=== PATIENT | female | born 1975 | race Caucasian/White ===

== ENCOUNTER → 2021-01-12 12:16 | Outpatient (CLI) | payer OTHER, SELFPAY ==
[2021-01-12 20:02] LABS: Add Manual Diff / Slide Review NO; Basophils Absolute Auto 0 /uL (0-100); Basophils Percent Auto 0.5 % (0-2); Eosinophils Absolute Auto 100 /uL (0-450); Eosinophils Percent Auto 2.4 % (2-4); Hematocrit 28.7 % (36-46); Hemoglobin 8.2 g/dL (12.0-16.0); Lymphocytes Absolute Auto 800 /uL (1100-4500); Lymphocytes Percent Auto 25.8 % (25-40); Mean Corpuscular HGB Conc 28.6 % (30-36); Mean Corpuscular Hemoglobin 20.5 PG (26-34); Mean Corpuscular Volume 71.7 fL (80-100); Monocytes Absolute Auto 300 /uL (0-900); Monocytes Percent Auto 10.6 % (3-14); Neutrophils Absolute Auto 1800 /uL (1500-7000); Neutrophils Percent Auto 60.7 % (50-75); Platelet Count 244 X10^3/uL (150-400); Red Cell Distribution Width 20.6 % (11.6-14.8)
[2021-01-12 20:12] LABS: Alanine Aminotransferase 31 IU/L (<35); Albumin 4.3 g/dL (3.5-5.0); Albumin Globulin Ratio 1.7 (1.0-2.8); Alkaline Phosphatase 63 U/L (38-126); Aspartate Aminotransferase 58 IU/L (14-36); Bilirubin Total 0.4 mg/dL (0.2-1.3); Blood Urea Nitrogen 9 mg/dL (7-17); Calcium 9.4 mg/dL (8.4-10.2); Carbon Dioxide 27 mmol/L (22-32); Chloride 101 mmol/L (98-107); Estimated Glomerular Filt Rate > 60.0 mL/min (>60); Globulin 2.5 g/dL (1.7-4.1); Glucose 93 mg/dL (70-100); HEMOLYSIS < 15 (0-50); Potassium 3.9 mmol/L (3.4-5.1); Sodium 136 mmol/L (137-145); Total Protein 6.8 g/dL (6.3-8.2)
[2021-01-12 20:28] LABS: Vitamin D 25 Hydroxy (D3) 33.9 ng/mL (30.0-100.0)
[2021-01-12 20:41] LABS: TSH w/ Reflex to FT4 1.57 uIU/mL (0.47-4.68)
[2021-01-12 20:59] LABS: Vitamin B12 201 pg/mL (239-931)
[2021-01-12 22:26] LABS: Hypochromasia 2+; Microcytosis 2+; Polychromasia 1+
== END ==
PROVIDERS: PCP Physician Assistant Medical; Visit Provider Physician Assistant Medical
DX: K62.5 Hemorrhage of anus and rectum (principal); M25.50 Pain in unspecified joint; R10.9 Unspecified abdominal pain; R53.81 Other malaise; R53.83 Other fatigue; R55 Syncope and collapse
CPT/HCPCS: 80053; 82306; 82607; 84443; 85025; 87086

== ENCOUNTER → 2021-01-13 11:57 | Outpatient (CLI) | payer OTHER, MEDICAID, SELFPAY | PROVIDERS: PCP Physician Assistant Medical; Visit Provider Physician Assistant Medical | DX: K62.5 Hemorrhage of anus and rectum (principal); M25.50 Pain in unspecified joint; R53.81 Other malaise; R53.83 Other fatigue; R55 Syncope and collapse; R10.9 Unspecified abdominal pain | CPT/HCPCS: 87045; 87046; 87177; 87899 ==

== ENCOUNTER → 2021-01-16 14:05 | Outpatient (CLI) | payer OTHER, MEDICAID, SELFPAY ==
[2021-01-16 19:07] LABS: Add Manual Diff / Slide Review NO; Basophils Absolute Auto 0 /uL (0-100); Basophils Percent Auto 0.6 % (0-2); Eosinophils Absolute Auto 0 /uL (0-450); Eosinophils Percent Auto 1.1 % (2-4); Hematocrit 27.9 % (36-46); Lymphocytes Absolute Auto 1000 /uL (1100-4500); Lymphocytes Percent Auto 29.9 % (25-40); Mean Corpuscular HGB Conc 28.6 % (30-36); Mean Corpuscular Hemoglobin 20.5 PG (26-34); Mean Corpuscular Volume 71.9 fL (80-100); Monocytes Absolute Auto 200 /uL (0-900); Monocytes Percent Auto 7.1 % (3-14); Neutrophils Absolute Auto 2100 /uL (1500-7000); Neutrophils Percent Auto 61.3 % (50-75); Platelet Count 277 X10^3/uL (150-400); Red Blood Cell Count 3.89 X10^6/uL (4.0-5.2); Red Cell Distribution Width 20.3 % (11.6-14.8); White Blood Cell Count 3.5 X10^3/uL (4.5-11.0)
[2021-01-16 19:14] LABS: Alanine Aminotransferase 35 IU/L (<35); Albumin 4.8 g/dL (3.5-5.0); Albumin Globulin Ratio 1.7 (1.0-2.8); Alkaline Phosphatase 71 U/L (38-126); Aspartate Aminotransferase 68 IU/L (14-36); BUN Creatinine Ratio 9.2 (6-22); Bilirubin Total 0.3 mg/dL (0.2-1.3); Blood Urea Nitrogen 6 mg/dL (7-17); C-Reactive Protein Quant < 0.5 mg/dL (<1.0); Calcium 9.9 mg/dL (8.4-10.2); Carbon Dioxide 24 mmol/L (22-32); Chloride 101 mmol/L (98-107); Estimated Glomerular Filt Rate > 60.0 mL/min (>60); Gamma Glutamyl Transpeptidase 38 U/L (12-43); Globulin 2.8 g/dL (1.7-4.1); Glucose 97 mg/dL (70-100); HEMOLYSIS < 15 (0-50); Iron 17 ug/dL (37-170); Sodium 136 mmol/L (137-145); Total Protein 7.6 g/dL (6.3-8.2)
[2021-01-16 19:24] LABS: Anisocytosis 3+; Hypochromasia 2+
[2021-01-16 19:25] LABS: Macrocytosis 1+; Microcytosis 2+
[2021-01-16 19:26] LABS: Poikilocytosis 1+
[2021-01-16 19:27] LABS: Erythrocyte Sedimentation Rate 17 MM/HR (0-20)
[2021-01-16 19:28] LABS: Percent Iron Saturation 4 % (15-50); Total Iron Binding Capacity 446 ug/dL (265-497); Transferrin 383 mg/dL (206-381)
== END ==
PROVIDERS: PCP Physician Assistant Medical; Visit Provider Physician Assistant Medical
DX: K62.5 Hemorrhage of anus and rectum (principal); M25.50 Pain in unspecified joint; R10.9 Unspecified abdominal pain; R53.81 Other malaise; R53.83 Other fatigue; R55 Syncope and collapse; D64.9 Anemia, unspecified; F10.10 Alcohol abuse, uncomplicated; R10.84 Generalized abdominal pain
CPT/HCPCS: 80053; 82977; 83540; 83550; 85025; 85651; 86140

== ENCOUNTER → 2021-01-17 13:52 | Outpatient (CLI) | payer OTHER, MEDICAID, SELFPAY ==
[2021-01-19 10:47] LABS: Fecal Immunochemical Test Negative (Negative)
== END ==
PROVIDERS: PCP Physician Assistant Medical; Referring Provider Physician Assistant Medical; Visit Provider Physician Assistant Medical
DX: K62.5 Hemorrhage of anus and rectum (principal); M25.50 Pain in unspecified joint; R10.9 Unspecified abdominal pain; R53.81 Other malaise; R53.83 Other fatigue; R55 Syncope and collapse
CPT/HCPCS: 82274; 87177

== ENCOUNTER → 2021-01-23 11:33 | Outpatient (CLI) | payer OTHER, SELFPAY ==
[2021-01-23 18:54] LABS: Add Manual Diff / Slide Review NO; Basophils Absolute Auto 0 /uL (0-100); Basophils Percent Auto 0.9 % (0-2); Eosinophils Absolute Auto 100 /uL (0-450); Eosinophils Percent Auto 2.6 % (2-4); Hematocrit 26.8 % (36-46); Hemoglobin 7.7 g/dL (12.0-16.0); Lymphocytes Absolute Auto 800 /uL (1100-4500); Lymphocytes Percent Auto 23.8 % (25-40); Mean Corpuscular HGB Conc 28.5 % (30-36); Mean Corpuscular Hemoglobin 20.8 PG (26-34); Mean Corpuscular Volume 72.9 fL (80-100); Monocytes Absolute Auto 200 /uL (0-900); Monocytes Percent Auto 5.2 % (3-14); Neutrophils Absolute Auto 2200 /uL (1500-7000); Neutrophils Percent Auto 67.5 % (50-75); Platelet Count 278 X10^3/uL (150-400); Red Blood Cell Count 3.69 X10^6/uL (4.0-5.2); Red Cell Distribution Width 19.9 % (11.6-14.8); White Blood Cell Count 3.2 X10^3/uL (4.5-11.0)
[2021-01-23 19:04] LABS: Alanine Aminotransferase 34 IU/L (<35); Albumin 4.6 g/dL (3.5-5.0); Albumin Globulin Ratio 1.8 (1.0-2.8); Alkaline Phosphatase 51 U/L (38-126); Aspartate Aminotransferase 55 IU/L (14-36); BUN Creatinine Ratio 15.3 (6-22); Bilirubin Total 0.3 mg/dL (0.2-1.3); Blood Urea Nitrogen 9 mg/dL (7-17); C-Reactive Protein Quant < 0.5 mg/dL (<1.0); Calcium 9.7 mg/dL (8.4-10.2); Carbon Dioxide 26 mmol/L (22-32); Chloride 99 mmol/L (98-107); Estimated Glomerular Filt Rate > 60.0 mL/min (>60); Gamma Glutamyl Transpeptidase 36 U/L (12-43); Globulin 2.5 g/dL (1.7-4.1); Glucose 94 mg/dL (70-100); HEMOLYSIS < 15 (0-50); Lactate Dehydrogenase 349 U/L (313-618); Potassium 3.6 mmol/L (3.4-5.1); Sodium 135 mmol/L (137-145); Total Protein 7.1 g/dL (6.3-8.2)
[2021-01-23 19:37] LABS: Erythrocyte Sedimentation Rate 17 MM/HR (0-20)
[2021-01-23 20:05] LABS: Folate 18.5 ng/mL (2.76-20.0)
[2021-01-25 05:30] LABS: Haptoglobin 105 mg/dL (42-296)
[2021-01-25 09:13] LABS: Ferritin 5 ng/mL (6-137)
== END ==
PROVIDERS: PCP Physician Assistant Medical; Visit Provider Physician Assistant Medical
DX: D64.9 Anemia, unspecified (principal); F10.10 Alcohol abuse, uncomplicated; K62.5 Hemorrhage of anus and rectum; M25.50 Pain in unspecified joint; R53.81 Other malaise; R10.84 Generalized abdominal pain; R53.83 Other fatigue; R79.89 Other specified abnormal findings of blood chemistry
CPT/HCPCS: 80053; 82728; 82746; 82977; 83010; 83615; 85025; 85651; 86140; 86880

== ENCOUNTER 2021-01-26 14:38 | Emergency (ER) | payer OTHER, MEDICAID, SELFPAY ==
[2021-01-26 14:47] VITALS: BP 146/81; PULSE 106; RESP 18; TEMP 36.8; O2SAT 100; BMI 26.6
[2021-01-26 15:41] LABS: Alanine Aminotransferase 34 IU/L (<35); Albumin 4.4 g/dL (3.5-5.0); Albumin Globulin Ratio 1.6 (1.0-2.8); Alkaline Phosphatase 52 U/L (38-126); Aspartate Aminotransferase 42 IU/L (14-36); BUN Creatinine Ratio 13.6 (6-22); Bilirubin Total 0.1 mg/dL (0.2-1.3); Blood Urea Nitrogen 9 mg/dL (7-17); Calcium 9.3 mg/dL (8.4-10.2); Carbon Dioxide 26 mmol/L (22-32); Chloride 104 mmol/L (98-107); Estimated Glomerular Filt Rate > 60.0 mL/min (>60); Globulin 2.7 g/dL (1.7-4.1); Glucose 111 mg/dL (70-100); HEMOLYSIS < 15 (0-50); Potassium 3.7 mmol/L (3.4-5.1); Sodium 138 mmol/L (137-145); Total Protein 7.1 g/dL (6.3-8.2)
[2021-01-26 15:42] LABS: Add Manual Diff / Slide Review NO; Basophils Absolute Auto 0 /uL (0-100); Basophils Percent Auto 1.2 % (0-2); Eosinophils Absolute Auto 100 /uL (0-450); Eosinophils Percent Auto 2.9 % (2-4); Hematocrit 23.4 % (36-46); Lymphocytes Absolute Auto 800 /uL (1100-4500); Lymphocytes Percent Auto 26.9 % (25-40); Mean Corpuscular HGB Conc 29.8 % (30-36); Mean Corpuscular Hemoglobin 21.2 PG (26-34); Mean Corpuscular Volume 71.2 fL (80-100); Monocytes Absolute Auto 300 /uL (0-900); Monocytes Percent Auto 9.8 % (3-14); Neutrophils Absolute Auto 1700 /uL (1500-7000); Neutrophils Percent Auto 59.2 % (50-75); Platelet Count 295 X10^3/uL (150-400); Red Blood Cell Count 3.29 X10^6/uL (4.0-5.2); White Blood Cell Count 2.8 X10^3/uL (4.5-11.0)
--- NOTE | 2021-01-26 16:04 | ED_ITS ---
HPI - Recheck/Abnormal Lab/Rx General Chief Complaint: Recheck/Abnormal Lab/Rx Stated Complaint: Abnormal Blood Work, Extreme Anemia Time Seen by Provider: 01/26/21 15:00 Mode of arrival: Ambulatory Limitations: no limitations History of Present Illness HPI narrative: Patient here for evaluation for anemia. Patient has been closely followed by her primary care and [facility], has low hemoglobin that is trending down words. However 1st hemoglobin done on our medical records was January 12 that was 8.0. For the hemoglobin. Today is 7.0. However, patient just finished her menstrual cycle. Patient states she started feeling tired and fatigued with generalized abdominal bloating at the beginning of the year and becoming worse with symptoms and saw family doctor in the last week. Has referral to Hematology at [facility] and [place]. They just called her on her cell phone while she was here. Hematology office inform stay have not received the referral request from her primary care yet. Patient denies any b lack stools. Patient was living in [facility] as well as [facility] in the past years and just returned back to [facility] June 2020. Since coming back she has felt worse. She did not feel this way while living with overseas. She was evaluated for parasites and negative. Heart rate noted. Will re-evaluate. No dizziness. No syncope. Occasional palpitations. No dyspnea. No chest pain. No black stools Related Data Previous Rx's Medication Instructions Recorded azithromycin 500 mg tablet See Rx Instructions PO .COMPLEX #3 01/16/21 tab ferrous sulfate 325 mg (65 mg 325 mg PO DAILY #7 tab 01/26/21 iron) tablet (iron) Allergies Allergy/AdvReac Type Severity Reaction Status Date / Time No Known Drug Allergies Allergy Verified 01/12/21 11:55 Review of Systems Review of Systems Narrative: GENERAL: Denies chills, positive for fatigue, malaise, negative sweats. HEENT: Denies sinus pain, ear pain, sore throat RESPIRATORY: Denies dyspnea, cough CARDIOVASCULAR: Denies chest pain, palpitations GASTROINTESTINAL: Denies nausea, vomiting, abdominal pain : Denies dysuria, frequency, hematuria MUSCULOSKELETAL: denies muscle or bony pain SKIN: Denies rash, skin lesions NEUROLOGIC: Denies weakness, numbness ROS Unobtainable: All systems reviewed & are unremarkable except as noted in HPI and below Patient History Medical History Acute pharyngitis Dermatophytosis, groin Generalized abdominal pain (genitourinary) device, implant, or graft infection or inflammation H/O candidal vulvovaginitis IUD surveillance Scabies Unspecified otitis media Viral infection, unspecified Social History Smoking Status: Current some day smoker Smoking Status: Current some day smoker alcohol intake frequency: 3 or more drinks per day Alcohol type: wine Substance Use Type: does not use Exam Narrative Exam Narrative: GENERAL: in no distress, not toxic not dyspneic HEAD: Normocephalic. EYES: Pupils equal round No scleral icterus. Bilateral pale conjunctiva ENT: Mucous membranes moist. NECK: Trachea midline. CARDIOVASCULAR: Regular rate and rhythm without murmurs, tachycardic RESPIRATORY: Clear to auscultation. Breath sounds equal bilaterally. No wheezes, rales, or rhonchi. GASTROINTESTINAL: Abdomen soft, non-tender no peritoneal signs, bowel sounds present EXTREMITIES: No gross deformities. BACK: No flank tenderness. NEURO: AOx4. SKIN: Warm and dry PSYCH: Not anxious, is cooperative Initial Vital Signs Initial Vital Signs: Vital Signs Temperature 98.2 F 01/26/21 14:47 Pulse Rate 106 H 01/26/21 14:47 Respiratory Rate 18 01/26/21 14:47 Blood Pressure 146/81 H 01/26/21 14:47 Pulse Oximetry 100 01/26/21 14:47 Course Course Course Narrative: No new issues during course of stay. Orders Ordered: ED Orders 01/26/21 15:15 CMP [Comprehensive Metabolic Panel] Stat Complete Blood Count AUTO DIFF Stat Reevaluation(s) Reevaluation #1: Spoke with patient results. Agrees no transfusion. She will try to call schedule Regional hematology referral given to her by me. As of right now [facility] has not established appointment for her. Heart rate 85 Time: 17:39 Consultations Consultation #1: Spoke with Hematology/Oncology Dr. Webb, agrees, no transfusion. Patient can follow-up in the office. May want to start iron tab daily for 7 days. She can follow up with Dr. Stanley or Dr. dhaliwal at local office. Time: 17:01 Vital Signs Vital signs: Vital Signs - 8 hr 01/26/21 14:47 01/26/21 16:45 01/26/21 18:05 Temperature 98.2 F Pulse Rate 106 H 77 79 Respiratory Rate 18 16 18 Blood Pressure 146/81 H 118/74 Pulse Oximetry 100 99 99 MDM - Recheck/Abnormal Lab/Rx Lab Data Result diagrams: 01/26/21 15:15 01/26/21 15:15 Labs: Lab Results 01/26/21 01/26/21 Range/Units 15:15 15:15 WBC 2.8 L (4.5-11.0) X10^3/uL RBC 3.29 L (4.0-5.2) X10^6/uL Hgb 7.0 L (12.0-16.0) g/dL Hct 23.4 L (36-46) % MCV 71.2 L (80-100) fL MCH 21.2 L (26-34) PG MCHC 29.8 L (30-36) % RDW 20.0 H (11.6-14.8) % Plt Count 295 (150-400) X10^3/uL Neut % (Auto) 59.2 (50-75) % Lymph % (Auto) 26.9 (25-40) % Beaver % (Auto) 9.8 (3-14) % Eos % (Auto) 2.9 (2-4) % Baso % (Auto) 1.2 (0-2) % Neut # (Auto) 1700 (6576-8938) /uL Lymph # (Auto) 800 L (7354-9057) /uL Beaver # (Auto) 300 (0-900) /uL Eos # (Auto) 100 (0-450) /uL Baso # (Auto) 0 (0-100) /uL Sodium 138 (137-145) mmol/L Potassium 3.7 (3.4-5.1) mmol/L Chloride 104 (98-107) mmol/L Carbon Dioxide 26 (22-32) mmol/L BUN 9 (7-17) mg/dL Creatinine 0.66 (0.52-1.04) mg/dL Estimated GFR > 60.0 (>60) mL/min BUN/Creatinine Ratio 13.6 (6-22) Glucose 111 H (70-100) mg/dL Calcium 9.3 (8.4-10.2) mg/dL Total Bilirubin 0.1 L (0.2-1.3) mg/dL AST 42 H (14-36) IU/L ALT 34 (<35) IU/L Alkaline Phosphatase 52 (38-126) U/L Total Protein 7.1 (6.3-8.2) g/dL Albumin 4.4 (3.5-5.0) g/dL Globulin 2.7 (1.7-4.1) g/dL Albumin/Globulin Ratio 1.6 (1.0-2.8) MDM Narrative Medical decision making narrative: Appropriate for discharge home. Patient not toxic. Patient essentially at baseline with hemoglobin. Is microcytic anemia. Reviewed with cash applications analyst. No active bleeding. Does get palpitations at times with positional changes but no syncope no diaphoresis no dyspnea. Patient agrees with treatment plan and follow-up with Hematology. She will call hematology group that I spoke with. Return precautions reviewed with her. Discharge Plan Departure Patient Disposition: Home Clinical Impression: Anemia Qualifiers: Anemia type: unspecified type Qualified Code(s): D64.9 - Anemia, unspecified Instructions: Anemia Activity Restrictions/Additional Instructions: Return if worse if any questions or concerns or trouble breathing or any worsening symptoms or any worsening of dizziness or feeling likely going to pass out. Call provided hematology office in the morning to see if you can get into the office sooner Prescriptions: New ferrous sulfate [iron] 325 mg (65 mg iron) tablet 325 mg PO DAILY Qty: 7 RF: 0 No Action azithromycin 500 mg tablet See Rx Instructions PO .COMPLEX Qty: 3 RF: 0 Referrals: Tuan Dhaliwal MD [Physician] - Hannah Tai PA-C [Primary Care Provider] - Clarissa Stanley MD [Physician] -
[2021-01-26 16:45] VITALS: PULSE 77; RESP 16; O2SAT 99
[2021-01-26 18:05] VITALS: BP 118/74; PULSE 79; RESP 18; O2SAT 99
== END 2021-01-26 18:16 | disposition home or self-care (01) ==
PROVIDERS: Emergency Provider Emergency Medicine; PCP Physician Assistant Medical
DX: D64.9 Anemia, unspecified (principal)
CPT/HCPCS: 36415; 80053; 85025; 99283

== ENCOUNTER → 2021-04-20 12:03 | Outpatient (CLI) | payer OTHER, MEDICAID, SELFPAY ==
[2021-04-20 13:17] LABS: COVID19 -Nasal RAPID Negative (Negative)
== END ==
PROVIDERS: Family Provider Internal Medicine Hematology & Oncology; PCP Physician Assistant Medical; Referring Provider Specialist; Visit Provider Specialist
DX: Z01.812 Encounter for preprocedural laboratory examination (principal); Z20.822 Contact with and (suspected) exposure to COVID-19
CPT/HCPCS: 87635

== ENCOUNTER 2021-04-21 06:49 | Day surgery (SDC) | payer OTHER, MEDICAID, SELFPAY ==
[2021-04-18 14:44] VITALS: BMI 27.3
[2021-04-21] VITALS (15 sets, daily range): BP systolic 93–131; BP diastolic 54–90; PULSE 65–96; RESP 12–20; TEMP 36.2–36.8; O2SAT 91–98; BMI 27.3
--- NOTE | 2021-04-21 | PATH_ITS ---
[facility] Accession Number: [id number] . 01 Material submitted: . PART A: uterus - UTERUS AND BILATERAL FALLOPIAN TUBES PART B: peritoneum - PERITONEAL BIOPSY . 02 Diagnosis: A. Uterus and Bilateral Fallopian Tubes, Hysterectomy and Bilateral Salpingectomies (Morcellated Uterus Weight 273 grams): Endometrium with features of breakdown and shedding; negative for glandular hyperplasia, cytologic atypia, or malignancy. Multiple portions of leiomyomata (up to 16 mm in greatest dimension); negative for atypia or malignancy. Uterine serosa with no significant histomorphologic abnormality. Fallopian tubes x2, complete cross sections; negative for atypia or malignancy. . B. Peritoneal Biopsy: Fibroconnective tissue involved by endometriosis. [facility] 04/27/2021 1421 Local . 02 Electronically signed: . Vani Giudo MD, Pathologist NPI- [id number] . 01 Gross description: . A. Received in formalin, labeled with the patient's name and additionally labeled uterus and bilateral fallopian tubes is a morcellated uterus specimen weighing 273 grams and aggregating 18.0 x 17.0 x 3.5 cm. Cut surfaces are rubbery with a whorled pale holcomb surface. A few putative areas of endometrial mucosa are seen; and no irregular thickening is noted. A detached probable leiomyoma measuring 1.0 x 1.0 x 0.8 cm is also present. Other scattered mural leiomyomata up to 1.6 cm in greatest dimension are seen. No cervix is identified. Also received is an attached fallopian tube measuring 5.0 cm in length and up to 0.8 cm in diameter. There is a detached fallopian tube present measuring 6.0 cm in length and up to 0.7 cm in diameter. The fallopian tube serosa is holcomb-parra smooth and glistening. The fallopian tubes are sectioned revealed a pinpoint stellate lumen. No masses or lesions are identified. Material Checker sections are submitted as follows: . Cassette A1: Material Checker leiomyomata. Cassettes A2-A4: Presumed endomyometrium. Cassette A5: Attached fallopian tube. Cassette A6: Detached fallopian tube. . B. Received in formalin, labeled with the patient's name and additionally labeled peritoneal biopsy is an irregular portion of holcomb-parra soft tissue with punctate hemorrhage measuring 1.2 x 0.3 x 0.2 cm. The specimen is entirely submitted in cassette B1. ([id number]) /MRV 04/26/2021 1227 Local . 02 Pathologist provided ICD-10: N92.1, D25.0, D50.9, N80.9 . 02 CPT . 824060, 472124 Performed at: 01 [facility] Cyt[facility] [address] [id number] MD Souleymane Coyle MD Phone: [phone] Performed at: 02 [facility] [id number] [place] [id number] MD Hannah Pardo MD Phone: [phone]
--- NOTE | 2021-04-21 07:24 | PM.PREOP ---
Pre-operative Note COVID-19 COVID-19 status: Negative Result date/Date tested (Pos, Neg/Pending): 04/20/21 Interval Note History & Physical reviewed/Exam performed by Physician: Yes Changes to H&P: No
[2021-04-21] MEDS: LACTATED RINGERS 1,000 ML 100 ML IV ×3 (07:36→22:07)
[2021-04-21 07:43] LABS: Add Manual Diff / Slide Review NO; Basophils Absolute Auto 0 /uL (0-100); Basophils Percent Auto 0.8 % (0-2); Eosinophils Absolute Auto 200 /uL (0-450); Eosinophils Percent Auto 5.2 % (2-4); Hematocrit 29.2 % (36-46); Hemoglobin 9.6 g/dL (12.0-16.0); Lymphocytes Absolute Auto 1300 /uL (1100-4500); Lymphocytes Percent Auto 44.5 % (25-40); Mean Corpuscular HGB Conc 32.9 % (30-36); Mean Corpuscular Hemoglobin 28.4 PG (26-34); Mean Corpuscular Volume 86.4 fL (80-100); Monocytes Absolute Auto 300 /uL (0-900); Monocytes Percent Auto 8.7 % (3-14); Neutrophils Absolute Auto 1200 /uL (1500-7000); Neutrophils Percent Auto 40.8 % (50-75); Platelet Count 213 X10^3/uL (150-400); Red Blood Cell Count 3.38 X10^6/uL (4.0-5.2); Red Cell Distribution Width 21.4 % (11.6-14.8)
[2021-04-21] MEDS: CEFAZOLIN 2 GM/20 ML SYRINGE IV (07:57)
[2021-04-21] MEDS: ACETAMINOPHEN IV 1,000 MG/100 ML VIAL 400 MG IV (08:00)
[2021-04-21 08:14] LABS: Anisocytosis 2+
--- NOTE | 2021-04-21 08:23 | SUR.OPER ---
Lithotomy on padded OR bed. [place] Pad Positioner under torso. Head on pillow, arms padded and tucked at sides. Legs secured in padded yellow fins stirrups.
[2021-04-21] MEDS: ROPIVACAINE 0.2% PF 2 MG/ML 10ML AMP 20 ML INJ (08:31)
[2021-04-21] MEDS: BUPIVACAINE 0.5% (PF) 30 ML, EPINEPHrine 0.15 MG INJ (08:31)
--- NOTE | 2021-04-21 09:35 | PM.OP.1 ---
Operative Date/Time/Diagnoses Date of procedure: 04/21/21 Time of procedure: 09:35 Pre-op diagnosis: Menorrhagia, submucous fibroid Post-op diagnosis: same (Peritoneal endometriosis) Procedure & Clinicians Procedure: Laparoscopic supracervical hysterectomy with bilateral salpingectomies and biopsy of peritoneal tissue likely endometriosis Same procedure as scheduled: Yes Indications: Menorrhagia with submucous fibroid on ultrasound Surgeon: Martha Lewis Rail Transportation Operator: Lara Burden Anesthesia Type: General Operative Notes Findings: Enlarged fibroid uterus with normal appearing ovaries and tubes. Normal liver edge and gallbladder dome. Normal bowel surface. 1 area of endometriosis in the posterior right broad ligament. Closure Type: primary Specimen(s): other (Uterus above the level of the cervix, bilateral fallopian tubes, peritoneal biopsy) Applied: catheter (Alberto) Estimated Blood Loss (mL): 20 Blood products transfused: none Procedure in detail: Patient is brought to the operating room where she underwent general anesthesia and placed in low [facility] stirrups. She was prepped and draped in the usual sterile fashion. A check list was reviewed with the staff in the room prior to beginning of the case. Patient had pulsatile stockings in place and functional. 2 g of Ancef were in prior to beginning of the case.. A Alberto catheter was placed. A single-tooth tenaculum was placed on the anterior lip of the cervix and the cervix dilated to a #6 Hegar dilator. The uterine manipulator was placed through the cervix into the uterus with the balloon inflated with 3 mL of air. The area of the umbilical incision and the 5 mm right and left lower quadrant incisions were injected with Marcaine. An incision was made with scalpel. The verries needle was placed into the abdomen and confirmed in the appropriate place with withdrawal on a syringe and then free flow of fluid down through the needle. The abdomen was insufflated with CO2. The needle was removed and a 5 mm trocar placed without difficulty. There did not appear to be any damage is placement of the trocar. The right and left lower quadrant incisions were made with the scalpel and the trochars placed without damage to internal structures. The PK forceps were used to cauterize the mesosalpinx followed by the round ligaments on both sides. Sequential bites were taken down the broad ligaments. The uterine arteries were cauterized. An incision was made above the level bladder pushing the bladder away from the cervix. The MOISE loop was placed around the uterus and the uterus was amputated above the level of the bladder. Bleeding was controlled with the PK forceps. The PK forceps were used to cauterize in the endocervical canal. A supracervical incision was made and an 11 mm port placed. A 15 mm Endo Catch bag was placed in the abdomen. The uterus and tubes were placed in the bag and brought up through the suprapubic port site. The Jay O was placed. The uterus was hand morselized. The abdomen was reinsufflated and adequate hemostasis was noted. The trochars were removed and the CO2 allowed escape from the abdomen. The fascia layer of the suprapubic site was repaired with 0 Vicryl suture. Skin was closed with 4-0 Monocryl suture at the suprapubic site and the other 3 sites. The patient went to recovery room in good condition. Counts of instruments and sponges were correct. Dr. Burden was present throughout the case to assist with holding the camera, retracting, cauterizing and cutting the structures on the left side of the patient, as well as assisting with morselization of the uterus. Complications: none Post-operative Condition: stable Disposition: Acute Care (Observation) Plan for aftercare: Home in a.m. if stable, tolerating a regular diet, ambulatory
[2021-04-21] MEDS: ONDANSETRON 4 MG/2 ML INJ IV ×2 (10:30→15:36)
--- NOTE | 2021-04-21 10:34 | SUR.PHASEI ---
Report to PAOLA Ruiz. Pt transported to room 214 with PAOLA Kirk and myself. No new updates for RN. Pt was in stable condition upon transfer
[2021-04-21] MEDS: KETOROLAC 30 MG/ML VIAL IV ×3 (10:43→23:04)
[2021-04-21] MEDS: ACETAMINOPHEN 325 MG TABLET 650 MG PO (12:23)
[2021-04-21] MEDS: OXYCODONE IR 5 MG TABLET PO ×3 (12:28→20:14)
--- NOTE | 2021-04-21 20:15 | PC.NURSE ---
Pt received from PACU at 1030 this a.m. A&OX3. She reports pain controlled well with IV toradol and oxycodone 5 mg. She reports some cramping and nausea however believes zofran causes a wave of emotions intermittently tearful for a short while without being able to explain why she felt emotional. Encouraged patient and offered support. She denies much appetite but able to keep some snacks down, and drinking plenty of fluid this afternoon. Small amount of bleeding to one of incisions, reinforced dressing and no further bleeding. Continuous monitoring. Alberto in place, she has not yet gotten out of bed. SCD's in place. Encouraged IS use. Plan for d/c home in a.m.
[2021-04-22] MEDS: OXYCODONE IR 5 MG TABLET PO ×2 (00:33→04:46)
[2021-04-22] MEDS: ACETAMINOPHEN 325 MG TABLET 650 MG PO ×2 (00:34→06:01)
[2021-04-22 03:37] VITALS: BP 107/77; PULSE 71; RESP 17; TEMP 36.1; O2SAT 99
[2021-04-22] MEDS: KETOROLAC 30 MG/ML VIAL IV (04:40)
--- NOTE | 2021-04-22 06:20 | PC.NURSE ---
0615 Alberto catheter discontinued after medicated with 650 mg. of Tylenol too early for Oxycodone. Very scant blood noted when gene care was done. Instructed to call for assistance if she needed to use the bathroom. Will cont. POC & monitor.
[2021-04-22 06:58] LABS: Basophils Absolute Auto 0 /uL (0-100); Basophils Percent Auto 0.5 % (0-2); Eosinophils Absolute Auto 0 /uL (0-450); Eosinophils Percent Auto 0.1 % (2-4); Hematocrit 24.3 % (36-46); Hemoglobin 7.9 g/dL (12.0-16.0); Lymphocytes Absolute Auto 1000 /uL (1100-4500); Lymphocytes Percent Auto 23.2 % (25-40); Mean Corpuscular HGB Conc 32.4 % (30-36); Mean Corpuscular Hemoglobin 27.8 PG (26-34); Mean Corpuscular Volume 85.8 fL (80-100); Monocytes Absolute Auto 300 /uL (0-900); Neutrophils Absolute Auto 2900 /uL (1500-7000); Neutrophils Percent Auto 69.2 % (50-75); Platelet Count 168 X10^3/uL (150-400); Red Blood Cell Count 2.83 X10^6/uL (4.0-5.2); Red Cell Distribution Width 21.3 % (11.6-14.8); White Blood Cell Count 4.2 X10^3/uL (4.5-11.0)
[2021-04-22 07:04] LABS: Add Manual Diff / Slide Review SLIDE REVIEW
[2021-04-22 07:45] LABS: Anisocytosis 1+
--- NOTE | 2021-04-22 08:06 | P.DS_ITS ---
History of Present Illness History of Present Illness Date Patient Seen: 04/22/21 Time Patient Seen: 08:06 Chief complaint: OPB Narrative: Postoperative laparoscopic supracervical hysterectomy with bilateral salpingectomy and biopsy of peritoneal endometriosis stable. She has spikes of pain but otherwise okay pain control. She denies nausea. She is ready to try to ambulate and urinate post Alberto catheter removed. Discharge Providers Provider Discharge Date: 04/22/21 Primary care physician: Hannah Tai PA-C Discharge provider: Martha Lewis MD Summary Status at Discharge Cognitive/behavioral status at discharge: oriented Functional status at discharge: independent ambulation Overall status at discharge: patient is progressing back to baseline Time Spent with Patient Time spent: Less than 30 minutes Exam Vital Signs (past 8 hours): - 04/22/21 03:37 Temperature 96.9 F L Pulse Rate 71 Respiratory Rate 17 Blood Pressure 107/77 Pulse Oximetry 99 Oxygen Delivery Method Room Air Oxygen Flow Rate 0 Narrative Exam Narrative: Abdomen is soft, minimally distended, minimally tender. Incisions are clean, dry, intact. Minimal vaginal bleeding. Extremities without edema and nontender. Objective Labs Result Diagrams: 04/22/21 06:45 Labs: Laboratory Results - last 24 hr 04/21/21 04/21/21 04/22/21 07:30 07:30 06:45 WBC 4.2 L RBC 2.83 L Hgb 7.9 L Hct 24.3 L MCV 85.8 MCH 27.8 MCHC 32.4 RDW 21.3 H Plt Count 168 Neut % (Auto) 69.2 D Lymph % (Auto) 23.2 L D Morris % (Auto) 7.0 Eos % (Auto) 0.1 L Baso % (Auto) 0.5 Neut # (Auto) 2900 Lymph # (Auto) 1000 L Morris # (Auto) 300 Eos # (Auto) 0 Baso # (Auto) 0 RBC Morphology Not Reportable See below Anisocytosis 2+ H 1+ H Antibody Screen Negative [facility] Medical History (Updated 04/18/21 @ 14:58 by Karuna Fox RN) Acute pharyngitis Dermatophytosis, groin Generalized abdominal pain (genitourinary) device, implant, or graft infection or inflammation H/O candidal vulvovaginitis IUD surveillance Joint pain (2011) Scabies Unspecified otitis media Viral infection, unspecified Surgical History (Updated 04/21/21 @ 09:33 by Martha Lewis MD) No history of previous surgery Social History household members: family Smoking Status: Current some day smoker alcohol intake: current Discharge Assessment & Plan Assessment and Plan Assessment: Postoperative laparoscopic supracervical hysterectomy with bilateral salpingectomies and biopsy of perineal endometriosis stable. Plan of Treatment: After patient able to urinate and ambulate she will be discharged home. Patient will schedule postop appointment in about 2 weeks. Prescription for oxycodone sent to [facility] pharmacy. Routine precautions reviewed. Discharge Plan Discharge Plan Patient Disposition: Home Discharge orders & Medications Discharge Orders: Discharge (Order); Ordered 04/22/21 Ordered By: Martha Lewis Prescriptions: New oxycodone 5 mg Tablet 5 mg PO Q4HR PRN (Reason: Pain, Moderate (4-6)) Qty: 20 0RF Continued pyridoxine (vitamin B6) [Vitamin B-6] 100 mg Tablet 50 mg PO DAILY 0RF B-complex with vitamin C Tablet 1 tab DAILY 0RF omega-3 fatty acids-vitamin E 1,000 mg Capsule 1 cap PO DAILY 0RF Probiotic 10 billion cell Capsule 10,000 mmu cells PO DAILY 0RF Follow up/Referrals: Martha Lewis MD [Physician] - (Patient will schedule postop appointment at the same date as she has her next oncology appointment, May 04) Hannah Tai, PAJosephineC [Primary Care Provider] - Diet/Activity/Treatments Diet: Regular Activity: Nothing in vagina for 1 week. No other restrictions. Skin/Wound/Dressing Care Report to your healthcare provider any signs of infection, such as:: chills, fever and unusual redness Dressing: May remove Band-Aids 24 hours after surgery. Leave Steri-Strips in place, can get wet, just pat dry. After 1 week get wet and rub off Visit Report/Discharge Packet Instructions: DI for Hysterectomy, DI for Laparoscopy Discharge Data Primary Care Provider: Hannah Tai Attending Provider: Martha Lewis
[2021-04-22 08:20] VITALS: BP 101/70; PULSE 65; RESP 17; TEMP 36.7; O2SAT 99
[2021-04-22 09:03] VITALS: O2SAT 99
[2021-04-22] MEDS: OXYCODONE IR 10 MG TABLET PO (09:32)
[2021-04-22] MEDS: DOCUSATE 100 MG CAPSULE 200 MG PO (09:32)
[2021-04-22 09:35] VITALS: O2SAT 98
--- NOTE | 2021-04-22 09:35 | PC.NURSE ---
pt up to bathroom to void, min sba now in chair, co low abd surgical pain 09/15 medicated with oxycodone 10 mg ir. anticipate dc home at 1100. will monitor.
--- NOTE | 2021-04-22 12:18 | CM.DANOTE ---
DCP: Case received, EMR reviewed and met with patient. Introduced self and role. Was able to obtain some information from patient regarding her baseline activity level. DCP assessment completed with information currently available. Patient is a 45 year old female who admitted yesterday morning to the care of the [employer]AL [employer]ING HELPER team. PCP: Dr. Tai. Payer: confirmed: [employer] [place]. Patient came to the hospital via private vehicle for a surgical procedure. Patient had a supracervical hysterectomy. Met with patient in her room. She is alert and oriented, pleasant. She resides in [facility]. She is independent, and is employed at [employer]. Patient is hoping to leave by 11:00, [place] ferry. P: Patient is discharging home today with no needs. Valerie Devries RN/Compliance Technician Discharge Planning/Care Management CM Discharge Assessment Start: 04/22/21 12:17 Freq: Status: Active Protocol: Document 04/22/21 12:17 (Rec: 04/22/21 12:18 [id number]) Discharge Planning Assessment Assigned Hotel Services Sales Representative Valerie Devries RN/Compliance Technician Advance Directives? No History Provided By Patient,Medical Record Prior Living Arrangements House Household Members family Type of transporation used prior to Drives own vehicle admit Independent with ADL's Yes Is patient alert and oriented? Yes Caregiver for Another No Barriers to Discharge No Transportation Arrangement Family Referrals Initiated None needed Whiteboard Updated in Patient Room with Yes name and ext. # of Hotel Services Sales Representative Review Status In Process Next Review Type Continued Stay Review Pre-Anesthesia Assessment Start: 04/18/21 14:44 Freq: Status: Complete Protocol: Document 04/18/21 14:44 [facility] (Rec: 04/18/21 14:58 [facility] [id number]) Pre-Anesthesia Assessment Preferred Name Gay Patient Information Reviewed Via Chart Review,Phone Assessment Comment COVID screen @ 04/20/21 Primary Care Provider Hannah Tai Seen Specialist in Last 12 Months Yes Specialist Seen Emergency,Water Control Station Engineer, Oncologist Primary Language Upper Sorbian Layout Designer Required No Height 5 ft 3 in Weight 154 lb Body Mass Index (BMI) 27.3 Barriers to Learning None Hx Anesthesia Reactions Pt has no prior surgical history, wisdom teeth extraction req more sedation Hx Family Anesthesia Reaction Yes: Cousin and sister have woken up during surgery Anesthesia Review Requested No Parcel Post Clerk No alcohol intake current alcohol intake frequency 3 or more drinks per day Smoking Status Current some day smoker Substance Use Type does not use History of Falling (Recent or History of No ) Patient is completely paralyzed or No completely immobile Mental Status Oriented to own ability Is patient on oxygen? No Does patient have JIMENEZ/SOB Yes Hx Sleep Apnea No Currently Taking a Beta Baljeet No Hx Chest Pain Yes: Palpitations Hx SOB Yes Anti-Coagulant Therapy No Has a Neurosurgical Nurse Practitioner No Cardiac Testing No Hx Pacemaker/ICD No Pacemaker Rep Required? No Cardiac Clearance Received Not Applicable Gastrointestinal Symptoms Abdominal Pain,Bloating Genitourinary Symptoms Abdominal Discomfort Urinary Catheter Present No Hx Urinary Self Catheterization No Diabetes No Patient No Lactating No Received a COVID vaccine? No Marital Status Single Comment Lives on [facility] Advance Directives? No
== END 2021-04-22 11:00 | disposition home or self-care (01) ==
LOC: OR 06:53 → AC 06:57
PROVIDERS: Family Provider Internal Medicine Hematology & Oncology; PCP Physician Assistant Medical; Referring Provider Physician Assistant Medical; Visit Provider Specialist
PROC: 0UT94ZL Resection of Uterus, Supracervical, Percutaneous Endoscopic Approach (ICD-10-PCS; CPT 58544; principal; 2021-04-21 07:45)
DX: D25.0 Submucous leiomyoma of uterus (principal); D50.9 Iron deficiency anemia, unspecified; F17.210 Nicotine dependence, cigarettes, uncomplicated; N80.3 Endometriosis of pelvic peritoneum
CPT/HCPCS: 58544; 36415; 85025; 86850; 86900; 86901; 94760; 94762; J0131; J0171; J0690; J1100; J1885; J2250; J2405; J2704; J2795; J3010

== ENCOUNTER 2021-05-31 12:09 | Day surgery (SDC) | payer OTHER, MEDICAID, SELFPAY ==
[2021-05-04 12:03] VITALS: BMI 27.3
[2021-05-31] VITALS (7 sets, daily range): BP systolic 113–133; BP diastolic 75–93; PULSE 66–82; RESP 13–18; TEMP 36.4; O2SAT 18–99; BMI 26.5
--- NOTE | 2021-05-31 | PATH_ITS ---
[facility] Accession Number: [id number] . 01 Material submitted: . PART A: duodenum - DUODENUM PART B: gastrointestinal site - GASTRIC . 01 Diagnosis: A. Duodenum, Biopsy: Duodenal mucosa with no diagnostic abnormality. Negative for active inflammation, features of sprue, dysplasia, or malignancy. . B. Stomach, Biopsies: Gastric antral and body mucosa with mild chronic inflammation. Negative for Helicobacter organisms by immunohistochemistry. Negative for intestinal metaplasia. Negative for dysplasia or malignancy. . [facility] 06/05/2021 1640 Local . 01 Electronically signed: . Barron Smith MD, PhD, Pathologist NPI- [id number] . 01 Gross description: . Part A: DUODENUM: Received in formalin are 2 fragment(s) of holcomb, soft tissue measuring 0.3 x 0.2 x 0.1 cm to 0.1 x 0.1 x 0.1 cm submitted entirely in 1 cassette(s) Part B: GASTRIC: Received in formalin are multiple fragment(s) of holcomb, soft tissue measuring 0.7 x 0.4 x 0.1 cm in aggregate submitted entirely in 1 cassette(s) /CPE 06/01/2021 1340 Local . 01 Microscopic: . B. An immunohistochemical stain was performed to evaluate for Helicobacter organisms and is negative. The control stain showed appropriate reactivity. . * This test was developed and its performance characteristics determined by [employer]. It has not been cleared or approved by the U.S. Food and Drug Administration. The FDA has determined that such clearance or approval is not necessary. This test is used for clinical purposes. It should not be regarded as investigational or for research. . 01 Pathologist provided ICD-10: D50.9, K29.70 . 01 CPT . 536007, 864435, C48495 Specimen Comment: A courtesy copy of this report has been sent to [phone] Performed at: 01 [facility] [address] [place] [address], [place], [place] [id number] MD Souleymane Coyle MD Phone: [phone]
[2021-05-31 12:50] LABS: COVID19 -Nasal RAPID Negative (Negative)
--- NOTE | 2021-05-31 13:02 | PM.HP.1 ---
History of Present Illness History of Present Illness [place] [facility] [place]: Iron deficiency and B12 deficiency with anemia. Need to rule out atrophic gastritis and celiac Patient History Medical History (Updated 05/31/21 @ 08:29 by Cyndee Morales RN) Acute pharyngitis Anemia Dermatophytosis, groin Generalized abdominal pain (genitourinary) device, implant, or graft infection or inflammation H/O candidal vulvovaginitis IUD surveillance Joint pain (2011) Scabies Unspecified otitis media Viral infection, unspecified Surgical History (Updated 05/04/21 @ 16:02 by Clarissa Stanley MD) No history of previous surgery Family & Social History Social History: household members family Tobacco & Substance use: Smoking Status Current some day smoker alcohol intake current alcohol intake frequency 3 or more drinks per day Substance Use Type does not use Meds Home Medications and Allergies Home Medications Medication Instructions Recorded Confirmed Type B-complex with vitamin C 1 tab PO DAILY 02/14/21 05/31/21 History Lactobacillus acidophilus 10 10,000 mmu cells PO DAILY 02/14/21 05/31/21 History billion cell capsule (Probiotic) omega-3 fatty acids-vitamin E 1 cap PO DAILY 02/14/21 05/31/21 History 1,000 mg capsule pyridoxine (vitamin B6) 100 mg 50 mg PO DAILY 02/14/21 05/31/21 History tablet (Vitamin B-6) oxycodone 5 mg tablet 5 mg PO Q6H PRN #20 tab 05/04/21 05/31/21 Rx bupropion HCl 150 mg 24 hr tablet, 300 mg PO QAM #180 tab 05/25/21 05/31/21 Rx extended release cyanocobalamin (vitamin B-12) See Rx Instructions .ROUTE .COMPLEX 05/31/21 05/31/21 History 1,000 mcg/mL injection kit Allergies Allergy/AdvReac Type Severity Reaction Status Date / Time No Known Drug Allergies Allergy Verified 05/31/21 12:50 Exam Vital Signs (past 8 hours): Oropharynx free of lesions Chest clear to auscultation percussion Cardiac exam reveals no S3 or murmur Objective Labs Labs: Laboratory Results - last 24 hr 05/31/21 12:31 SARS-CoV-2 (PCR) Negative Assessment & Plan Assessment & Plan narrative: Anemia with a component of iron deficiency and B12 deficiency. Need for EGD and biopsies to rule out gastric or duodenal pathology. Procedure being done so that disease does not advance. Risks, benefits, alternatives have been explained. Time Spent With Patient Critical Care time: I spent a total of [] minutes of critical care time on this patient's care today; this time is exclusive of procedural time.
--- NOTE | 2021-05-31 13:04 | PM.OP.EGD ---
Operative Date/Time/Diagnoses Date of procedure: 05/31/21 Pre-op diagnosis: See indication and findings Procedure & Clinicians Study performed: EGD with biopsy Indications: B12 and iron deficiency with anemia Procedure Notes Procedure in detail: After informed consent was obtained the patient was placed in left lateral decubitus position. Video upper scope was placed into the oropharynx and with the patient's help swelled the esophagus with the esophagus stomach and duodenum were carefully examined. Retroflexed view the GE junction was performed. The scope was removed. The patient tolerated procedure well. Blood loss none Complications none Sedation mac Findings 1. Completely normal esophagus with regular squamocolumnar junction extending only up to the ends of the gastric folds. 2. Somewhat erythematous stomach but no erosions ulcers in certainly no evidence of atrophy. Biopsies taken in the antrum and body 3. Normal duodenal bulb and sweep biopsies taken to rule out celiac disease. Patient is already due to follow up with Dr. Argueta will be following up on the biopsies
[2021-05-31] MEDS: SODIUM CHLORIDE 0.9% 1,000 ML 84 ML IV (13:11)
== END 2021-05-31 14:59 | disposition home or self-care (01) ==
PROVIDERS: Family Provider Internal Medicine Hematology & Oncology; PCP Physician Assistant Medical; Referring Provider Internal Medicine Gastroenterology; Visit Provider Internal Medicine Gastroenterology
PROC: 0DJ08ZZ Inspection of Upper Intestinal Tract, Via Natural or Artificial Opening Endoscopic (ICD-10-PCS; CPT 43235; principal; 2021-05-31 13:30)
DX: K29.50 Unspecified chronic gastritis without bleeding (principal); D51.3 Other dietary vitamin B12 deficiency anemia; D50.9 Iron deficiency anemia, unspecified; F17.210 Nicotine dependence, cigarettes, uncomplicated; Z20.822 Contact with and (suspected) exposure to COVID-19
CPT/HCPCS: 43239; 87635; J1756; J2704; J3420

== ENCOUNTER 2021-07-17 09:04 | Day surgery (SDC) | payer OTHER, MEDICAID, SELFPAY ==
[2021-05-04 12:03] VITALS: BMI 27.3
--- NOTE | 2021-07-14 16:20 | SUR.PREOP ---
07/14/21-420pm- patient called to discuss preop instructions saturday=no answer. message left on answering machine. requested to call back today reguarding covid testing.
--- NOTE | 2021-07-17 | PATH_ITS ---
[facility] Accession Number: [id number] . 01 Material submitted: . colon - RECTO SIGMOID BIOPSY . 02 Diagnosis: Rectosigmoid Colon, Biopsy: Hyperplastic polyp. Melanosis coli. Negative for active or microscopic colitis. Negative for granulomas, dysplasia or malignancy. [facility] 07/18/2021 1402 Local . 02 Electronically signed: . Barron Smith MD, PhD, Pathologist NPI- [id number] . 01 Gross description: . RECTO SIGMOID BIOPSY: Received in formalin is 1 fragment(s) of holcomb, soft tissue measuring 0.1 x 0.1 x 0.1 cm submitted entirely in 1 cassette(s) /FITZ 07/18/2021 0142 Local . 02 Pathologist provided ICD-10: K63.5, D50.9 . 02 CPT . 030573 Performed at: 01 [facility] [address] [place] [address], [place], [place] [id number] MD Souleymane Coyle MD Phone: [phone] Performed at: 02 [facility] [address] [place], [place] [id number] MD Hannah Pardo MD Phone: [phone]
[2021-07-17 09:41] LABS: COVID19 -Nasal RAPID Negative (Negative)
[2021-07-17 09:46] VITALS: BP 136/87; PULSE 91; RESP 18; TEMP 36.2; O2SAT 98; BMI 26.5
--- NOTE | 2021-07-17 09:46 | PM.HP.1 ---
History of Present Illness History of Present Illness Date Patient Seen: 07/17/21 Time Patient Seen: 09:46 Chief complaint: SDC Narrative: I reviewed the recent office follow-up visit in June. EGD did not explain iron deficiency anemia. There is a family history of colon cancer. Patient reports erratic stools but no bleeding symptoms. Patient History Medical History Acute pharyngitis Anemia Dermatophytosis, groin Generalized abdominal pain (genitourinary) device, implant, or graft infection or inflammation H/O candidal vulvovaginitis IUD surveillance Joint pain (2011) Scabies Unspecified otitis media Viral infection, unspecified Surgical History H/O: hysterectomy No history of previous surgery Family & Social History Social History: household members family Tobacco & Substance use: Tobacco type cigarettes Smoking Status Current some day smoker alcohol intake current alcohol intake frequency 3 or more drinks per day Substance Use Type does not use Meds Home Medications and Allergies Home Medications Medication Instructions Recorded Confirmed Type B-complex with vitamin C 1 tab PO DAILY 02/14/21 07/17/21 History Lactobacillus acidophilus 10 10,000 mmu cells PO DAILY 02/14/21 07/17/21 History billion cell capsule (Probiotic) omega-3 fatty acids-vitamin E 1 cap PO DAILY 02/14/21 07/17/21 History 1,000 mg capsule pyridoxine (vitamin B6) 100 mg 50 mg PO DAILY 02/14/21 07/17/21 History tablet (Vitamin B-6) cyanocobalamin (vitamin B-12) See Rx Instructions .ROUTE .COMPLEX 05/31/21 07/17/21 History 1,000 mcg/mL injection kit Allergies Allergy/AdvReac Type Severity Reaction Status Date / Time No Known Drug Allergies Allergy Verified 07/17/21 09:43 Review of Systems Review of Systems ROS: Yes All systems reviewed with the patient and are negative except as otherwise documented Exam Const General: cooperative and comfortable Orientation: alert HENMT Head: normocephalic Ears: external ears normal Nose: external nose normal Face and sinus: normal facial exam Mouth: oral mucosae normal Eyes General: appearance normal, both eyes and all related structures Neck Neck: normal visual inspection Chest Chest: normal inspection of the chest Resp Effort & Inspection: normal respiratory effort Cardio Rate: regular rate GI Inspection: normal to inspection Skin General: no rashes or lesions noted and No jaundice Neuro General: patient alert and moves all extremities Cognition: normal cognition Speech: speech normal Extrem General: no pedal edema Psych Appearance: grossly normal Objective Labs Labs: Laboratory Results - last 24 hr 07/17/21 09:19 SARS-CoV-2 (PCR) Negative Assessment & Plan Assessment & Plan narrative: 45-year-old female with a family history of colon cancer and an iron deficiency anemia. Colonoscopy is pursued today. Time Spent With Patient Critical Care time: I spent a total of [] minutes of critical care time on this patient's care today; this time is exclusive of procedural time.
--- NOTE | 2021-07-17 09:47 | PM.PREOP ---
Pre-operative Note COVID-19 COVID-19 status: Negative Result date/Date tested (Pos, Neg/Pending): 07/17/21 Criteria for continued procedure: Possibility delay results in more complex future surgery or treatment Interval Note History & Physical reviewed/Exam performed by Physician: Yes Changes to H&P: Yes ASA Class (for procedural sedation): II
[2021-07-17] MEDS: SODIUM CHLORIDE 0.9% 1,000 ML 84 ML IV (10:00)
--- NOTE | 2021-07-17 10:43 | SUR.OPER ---
[facility] AT 1043
--- NOTE | 2021-07-17 10:57 | P.OP.COLON_ITS ---
Operative Date/Time/Diagnoses Date of procedure: 07/17/21 Time of procedure: 10:57 Pre-op diagnosis: Iron deficiency anemia family history of colon cancer Post-op diagnosis: same Procedure & Clinicians Study performed: Colonoscopy with cold forceps polypectomy Same procedure as scheduled: Yes Indications: Iron deficiency family history of colon cancer. Surgeon: Naresh Connelly Procedure Notes SCOAP/Timeout: Done Procedure in detail: After the risks and benefits were explained, written and verbal informed consent was obtained. The patient was brought into the procedure room and placed into the left lateral decubitus position. Please see nurse information technology internship notes for sedation details. Digital rectal examination was accomplished. The scope was introduced into the patient and advanced under direct visualization to the cecum as identified by the appendiceal orifice and ileocecal valve. The scope was slowly withdrawn to carefully examine the mucosa for any defects or lesions. Comprehensive imaging was accomplished throughout the rectum including the dentate line. The colon was decompressed, the scope was then removed from the patient who tolerated the procedure well. 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 There were a few fairly classic hyperplastic appearing diminutive polyps in the rectosigmoid region. One of these was sampled with cold forceps for histologic proof. No inflam matory features identified throughout. No other significant polyps or mass lesions. The terminal ileum was interrogated and appeared visually normal. Endoscopic diagnosis 1. Mild melanosis coli 2. Hyperplastic appearing diminutive rectosigmoid polyps Post-procedure Plan for aftercare: 1. Await histopathology. 2. Repeat colonoscopy considering family history in 5 years. 3. No source for iron deficiency was uncovered today; capsule endoscopy is therefore recommended. Disposition: PACU
[2021-07-17 11:02] VITALS: BP 120/75; PULSE 76; RESP 20; TEMP 36.4; O2SAT 99
[2021-07-17 11:07] VITALS: BP 118/78; PULSE 73; RESP 20; O2SAT 99
[2021-07-17 11:12] VITALS: BP 116/88; PULSE 74; RESP 20; O2SAT 99
[2021-07-17 11:45] VITALS: BP 130/87; PULSE 86; RESP 16; TEMP 36.7; O2SAT 96
== END 2021-07-17 12:03 | disposition home or self-care (01) ==
PROVIDERS: Family Provider Internal Medicine Hematology & Oncology; PCP Physician Assistant Medical; Referring Provider Internal Medicine Gastroenterology; Visit Provider Internal Medicine Gastroenterology
PROC: 0DJD8ZZ Inspection of Lower Intestinal Tract, Via Natural or Artificial Opening Endoscopic (ICD-10-PCS; CPT 45378; principal; 2021-07-17 10:30)
DX: D50.9 Iron deficiency anemia, unspecified (principal); Z80.0 Family history of malignant neoplasm of digestive organs; Z20.822 Contact with and (suspected) exposure to COVID-19; K63.89 Other specified diseases of intestine; K63.5 Polyp of colon
CPT/HCPCS: 45380; 87635; C9803; J2704

== ENCOUNTER → 2021-07-28 11:40 | Outpatient (CLI) | payer OTHER, MEDICAID, SELFPAY ==
[2021-07-27 09:02] VITALS: BMI 27.3
[2021-07-28 19:43] LABS: Add Manual Diff / Slide Review NO; Basophils Absolute Auto 0 /uL (0-100); Basophils Percent Auto 0.7 % (0-2); Eosinophils Absolute Auto 100 /uL (0-450); Eosinophils Percent Auto 2.2 % (2-4); Hematocrit 42.1 % (36-46); Hemoglobin 14.4 g/dL (12.0-16.0); Lymphocytes Absolute Auto 1100 /uL (1100-4500); Lymphocytes Percent Auto 34.3 % (25-40); Mean Corpuscular HGB Conc 34.3 % (30-36); Mean Corpuscular Hemoglobin 33.2 PG (26-34); Mean Corpuscular Volume 96.9 fL (80-100); Monocytes Absolute Auto 200 /uL (0-900); Monocytes Percent Auto 6.6 % (3-14); Neutrophils Absolute Auto 1800 /uL (1500-7000); Neutrophils Percent Auto 56.2 % (50-75); Platelet Count 235 X10^3/uL (150-400); Red Blood Cell Count 4.35 X10^6/uL (4.0-5.2); Red Cell Distribution Width 14.2 % (11.6-14.8); White Blood Cell Count 3.3 X10^3/uL (4.5-11.0)
[2021-07-28 19:49] LABS: HEMOLYSIS 19 (0-50); Iron 138 ug/dL (37-170)
[2021-07-28 19:58] LABS: Percent Iron Saturation 58 % (15-50); Total Iron Binding Capacity 236 ug/dL (265-497); Transferrin 196 mg/dL (206-381)
[2021-07-28 20:38] LABS: Vitamin B12 516 pg/mL (239-931)
[2021-07-28 21:05] LABS: Alanine Aminotransferase 65 IU/L (<35); Albumin 4.5 g/dL (3.5-5.0); Albumin Globulin Ratio 1.5 (1.0-2.8); Alkaline Phosphatase 72 U/L (38-126); Aspartate Aminotransferase 88 IU/L (14-36); BUN Creatinine Ratio 8.2 (6-22); Bilirubin Total 0.4 mg/dL (0.2-1.3); Blood Urea Nitrogen 6 mg/dL (7-17); Calcium 9.2 mg/dL (8.4-10.2); Carbon Dioxide 27 mmol/L (22-32); Chloride 99 mmol/L (98-107); Estimated Glomerular Filt Rate > 60 mL/min (>60); Glucose 106 mg/dL (70-100); HEMOLYSIS < 15 (0-50); Potassium 4.2 mmol/L (3.4-5.1); Sodium 135 mmol/L (137-145); Total Protein 7.5 g/dL (6.3-8.2)
[2021-07-28 21:40] LABS: Ferritin 73 ng/mL (6-137)
== END ==
PROVIDERS: Family Provider Internal Medicine Hematology & Oncology; PCP Physician Assistant Medical; Visit Provider Physician Assistant Medical
DX: D50.9 Iron deficiency anemia, unspecified (principal); D51.9 Vitamin B12 deficiency anemia, unspecified
CPT/HCPCS: 80053; 82607; 82728; 83540; 83550; 85025

== ENCOUNTER → 2022-08-23 12:06 | Outpatient (CLI) | payer OTHER, MEDICAID, SELFPAY ==
[2021-07-27 09:02] VITALS: BMI 27.3
[2022-08-23 19:12] LABS: Add Manual Diff / Slide Review NO; Basophils Absolute Auto 0 /uL (0-100); Basophils Percent Auto 0.4 % (0-2); Eosinophils Absolute Auto 0 /uL (0-450); Eosinophils Percent Auto 1.3 % (2-4); Hematocrit 44.9 % (36-46); Hemoglobin 15.3 g/dL (12.0-16.0); Lymphocytes Absolute Auto 900 /uL (1100-4500); Lymphocytes Percent Auto 26.2 % (25-40); Mean Corpuscular HGB Conc 34.1 % (30-36); Mean Corpuscular Hemoglobin 33.1 PG (26-34); Mean Corpuscular Volume 97.1 fL (80-100); Monocytes Absolute Auto 200 /uL (0-900); Neutrophils Absolute Auto 2200 /uL (1500-7000); Neutrophils Percent Auto 65.1 % (50-75); Platelet Count 218 X10^3/uL (150-400); Red Blood Cell Count 4.63 X10^6/uL (4.0-5.2); Red Cell Distribution Width 14.4 % (11.6-14.8); White Blood Cell Count 3.5 X10^3/uL (4.5-11.0)
[2022-08-23 19:24] LABS: HEMOLYSIS < 15 (0-50); Iron 169 ug/dL (37-170)
[2022-08-23 19:30] LABS: Alanine Aminotransferase 19 IU/L (<35); Albumin Globulin Ratio 1.6 (1.0-2.8); Alkaline Phosphatase 52 U/L (38-126); Aspartate Aminotransferase 27 IU/L (14-36); Bilirubin Total 0.7 mg/dL (0.2-1.3); Blood Urea Nitrogen 6 mg/dL (7-17); C-Reactive Protein Quant < 0.5 mg/dL (<1.0); Calcium 9.9 mg/dL (8.4-10.2); Carbon Dioxide 29 mmol/L (22-32); Chloride 97 mmol/L (98-107); Estimated Glomerular Filt Rate > 60 mL/min (>60); Globulin 3.1 g/dL (1.7-4.1); Glucose 85 mg/dL (70-100); HEMOLYSIS < 15 (0-50); Potassium 3.9 mmol/L (3.4-5.1); Sodium 136 mmol/L (137-145); Total Protein 8.1 g/dL (6.3-8.2)
[2022-08-23 19:36] LABS: Percent Iron Saturation 56 % (15-50); Total Iron Binding Capacity 301 ug/dL (265-497); Transferrin 248 mg/dL (206-381)
[2022-08-23 19:44] LABS: Vitamin D 25 Hydroxy (D3) 84.7 ng/mL (30.0-100.0)
[2022-08-23 19:55] LABS: TSH w/ Reflex to FT4 0.84 uIU/mL (0.47-4.68)
[2022-08-23 20:02] LABS: Ferritin 39 ng/mL (6-137)
[2022-08-23 20:05] LABS: Erythrocyte Sedimentation Rate 4 MM/HR (0-20)
[2022-08-23 20:34] LABS: Folate > 20.0 ng/mL (2.76-20.0); Vitamin B12 Reflex MMA if <400 541 pg/mL (239-931)
== END ==
PROVIDERS: Family Provider Internal Medicine Hematology & Oncology; PCP Family Medicine; Visit Provider Family Medicine
DX: D50.9 Iron deficiency anemia, unspecified (principal); D51.9 Vitamin B12 deficiency anemia, unspecified; E53.8 Deficiency of other specified B group vitamins; F10.10 Alcohol abuse, uncomplicated; R79.89 Other specified abnormal findings of blood chemistry; Z98.818 Other dental procedure status
CPT/HCPCS: 80053; 82306; 82607; 82728; 82746; 83540; 83550; 84443; 85025; 85651; 86140

== ENCOUNTER → 2022-09-10 12:56 | Outpatient (CLI) | payer OTHER, MEDICAID, SELFPAY ==
[2021-07-27 09:02] VITALS: BMI 27.3
== END ==
PROVIDERS: Family Provider Internal Medicine Hematology & Oncology; PCP Family Medicine; Visit Provider Family Medicine
DX: R50.9 Fever, unspecified (principal)
CPT/HCPCS: 87040